=== PATIENT | male | born 1965 | race Caucasian/White ===

== ENCOUNTER 2018-07-08 10:51 | Emergency (ER) | payer SELFPAY ==
[2018-07-08] MEDS: HYDROCODONE/APAP (5/325) TAB PO (11:21)
== END 2018-07-08 11:42 | disposition home or self-care (01) ==
LOC: FTE 10:51
DX: M54.41 Lumbago with sciatica, right side (principal); F17.210 Nicotine dependence, cigarettes, uncomplicated; J44.9 Chronic obstructive pulmonary disease, unspecified
CPT/HCPCS: 99283